=== PATIENT | male | born 1975 | race Hispanic/Latino ===

== ENCOUNTER 2020-03-25 18:06 | Emergency (ER) | payer OTHER ==
[2020-03-25] MEDS ORDERED: LIDOCAINE HCL 1% 20 ML VIAL ONE (18:34)
[2020-03-25] MEDS ORDERED: TETANUS/DIPHTHERIA TOXOID [ADULT] 0.5 ML VIAL IM ONE (18:35)
== END 2020-03-25 20:15 ==
LOC: EDH 18:06
DX: S01.81XA Laceration without foreign body of other part of head, initial encounter (principal); Y08.89XA Assault by other specified means, initial encounter; Y93.89 Activity, other specified; Y92.148 Other place in prison as the place of occurrence of the external cause; Y99.8 Other external cause status
CPT/HCPCS: 12013; 70450; 90471; 90714

== ENCOUNTER 2020-04-02 11:44 | Inpatient (IN) | payer OTHER ==
[~2020-04-02] VITALS: Ht 162.6 cm; Wt 50.0 kg
[2020-04-02 12:40] LABS: BASOPHILS % (AUTO) 0.6 % (0.0-5.0); EOSINOPHILS % (AUTO) 0.7 % (0.0-8.0); HEMATOCRIT 47.7 % (42-54); LYMPHOCYTES % (AUTO) 8.1 % (21.0-51.0); MEAN CORPUSCULAR HEMOGLOBIN 28.5 pg (27.0-33.0); MEAN CORPUSCULAR HGB CONC 32.5 g/dL (32.0-36.0); MEAN CORPUSCULAR VOLUME 87.8 fL (79-99); MONOCYTES % (AUTO) 4.6 % (3.0-13.0); NEUTROPHILS % (AUTO) 85.6 % (40.0-77.0); PLATELET COUNT (AUTO) 319 K/uL (130-400); RED BLOOD CELL COUNT(AUTO) 5.43 MIL/uL (4.50-6.20); RED CELL DISTRIBUTION WIDTH 13.2 % (11.0-15.5)
[2020-04-02 12:41] LABS: APPEARANCE,URINE Clear (CLEAR); BILIRUBIN,URINE Negative (NEGATIVE); COLOR,URINE Yellow (YELLOW); GLUCOSE, URINE (UA) Negative (NEGATIVE); KETONES,URINE Trace mg/dL (NEGATIVE); LEUKOCYTE ESTERASE ,URINE Negative (NEGATIVE); NITRATE,URINE Negative (NEGATIVE); OCCULT BLOOD,URINE Negative (NEGATIVE); PROTEIN,URINE Trace mg/dL (NEGATIVE)
[2020-04-02 12:54] LABS: CREATININE 0.9 mg/dL (0.5-1.5); POTASSIUM 5.5 mmol/L (3.5-5.1)
[2020-04-02 12:59] LABS: ALBUMIN 4.2 g/dL (3.5-5.0); BILIRUBIN,TOTAL 0.2 mg/dL (0.2-1.0); TOTAL PROTEIN, SERUM 8.1 g/dL (6.0-8.3)
[2020-04-02] MEDS ORDERED: LEVOFLOXACIN 500 MG/D5W 100 ML 100 ML ONE (14:02)
[2020-04-02] MEDS ORDERED: METRONIDAZOLE 500MG/100ML BAG 100 ML ONE (14:02)
[2020-04-02] MEDS: LACTATED RINGERS 1000ML 1,000 ML IV SCH ×2 (14:07→22:06)
[2020-04-02] MEDS: CEFTRIAXONE SODIUM 1 GM IV SCH (14:15)
[2020-04-02] MEDS: METRONIDAZOLE 500MG/100ML BAG 100 ML IV SCH ×2 (14:15→22:05)
[2020-04-02] MEDS ORDERED: ONDANSETRON HCL 4 MG/2 ML VIAL ONE (15:37)
[2020-04-02] MEDS ORDERED: KETOROLAC TROMETHAMINE 30MG/ML ONE (15:38)
[2020-04-02] MEDS ORDERED: CEFTRIAXONE SODIUM 1 GM ONE (18:44)
[2020-04-02] MEDS ORDERED: LACTATED RINGERS 1000ML 1,000 ML IV ONE (18:45)
[2020-04-02] MEDS: FAMOTIDINE/PF 20 MG/2 ML VIAL IV SCH (21:00)
[2020-04-02 21:30] VITALS: BP 105/68
[2020-04-02] MEDS ORDERED: KETOROLAC TROMETHAMINE 15MG/ML IV PRN (21:45)
[2020-04-02] MEDS ORDERED: KETOROLAC TROMETHAMINE 15MG/ML ONE (22:03)
[2020-04-02 23:35] VITALS: BP 119/66
[2020-04-03 03:39] VITALS: BP 110/68
[2020-04-03 05:04] LABS: BASOPHILS % (AUTO) 0.8 % (0.0-5.0); EOSINOPHILS % (AUTO) 4.4 % (0.0-8.0); HEMATOCRIT 42.7 % (42-54); LYMPHOCYTES % (AUTO) 21.1 % (21.0-51.0); MEAN CORPUSCULAR HEMOGLOBIN 28.5 pg (27.0-33.0); MEAN CORPUSCULAR HGB CONC 32.3 g/dL (32.0-36.0); MEAN CORPUSCULAR VOLUME 88.2 fL (79-99); MONOCYTES % (AUTO) 9.1 % (3.0-13.0); NEUTROPHILS % (AUTO) 64.3 % (40.0-77.0); PLATELET COUNT (AUTO) 304 K/uL (130-400); RED BLOOD CELL COUNT(AUTO) 4.84 MIL/uL (4.50-6.20); RED CELL DISTRIBUTION WIDTH 13.3 % (11.0-15.5); WHITE BLOOD COUNT (AUTO) 9.9 K/uL (4.8-10.8)
[2020-04-03 05:18] LABS: ALBUMIN 3.1 g/dL (3.5-5.0); BILIRUBIN,TOTAL 0.3 mg/dL (0.2-1.0); CREATININE 1.1 mg/dL (0.5-1.5); POTASSIUM 4.5 mmol/L (3.5-5.1); TOTAL PROTEIN, SERUM 6.3 g/dL (6.0-8.3)
[2020-04-03] MEDS: LACTATED RINGERS 1000ML 1,000 ML IV SCH ×2 (06:13→19:46)
[2020-04-03] MEDS: METRONIDAZOLE 500MG/100ML BAG 100 ML IV SCH ×3 (06:13→21:26)
[2020-04-03 07:25] VITALS: BP 105/66
[2020-04-03] MEDS: ENOXAPARIN SODIUM 30 MG/0.3 ML SQ SCH (09:31)
[2020-04-03] MEDS: FAMOTIDINE/PF 20 MG/2 ML VIAL IV SCH ×2 (09:31→19:46)
[2020-04-03 10:59] VITALS: BP 97/61
--- NOTE | 2020-04-03 11:13 | NUR ---
i informed dr roberts that dr sherman said from a surgical standpoint pt can be d/c home once tolerating diet; he said to plan and d/c the patient tomorrow if he tolerates diet; i informed pt of this and he stated understanding.
[2020-04-03] MEDS: CEFTRIAXONE SODIUM 1 GM IV SCH (14:21)
--- NOTE | 2020-04-03 14:26 | NUR ---
pt noam. initially clear liquid diet and now full liquid w/ no nausea, vomiting or abdominal pain; pt also had a bowel movement thus releiving his constipation.
[2020-04-03 15:43] VITALS: BP 107/70
--- NOTE | 2020-04-03 17:56 | NUR ---
PATIENT IN RESTROOM AT TIME OF CM VISIT. WILL TRY AGAIN IN AM. NOTED THAT SW REFERRAL IN COMPUTER FOR AM R/T POSS DRUG USE. CM TO FOLLOW NEEDED. Addendum: 04/03/20 at 1757 by LIZANDRO SANDERS RN CM Amended: Links added.
--- NOTE | 2020-04-03 19:45 | NUR ---
ROUNDS PATIENT AWAKE AND ALERT. VOICES ALL NEEDS. MEDICATED PER [facility] FOR COMPLAINTS OF ABD PAIN. HEAT PACKS APPLIED. TOLERATING PO DIET WELL. NO NAUSEA OR VOMITING NOTED. VITALS STABLE. AFEBRILE. LR INFUSING AT 100ML/HR. UP AD DEANNA. PATIENT HAD BM THIS PM. NO SIGNS OF DISTRESS NOTED. CALL LIGHT WITHIN REACH. WILL CONTINUE TO BE OBSERVED. Addendum: 04/03/20 at 2210 by ALEXANDRA CONNER RN RN Amended: Links added.
[2020-04-03 20:25] VITALS: BP 93/70
[2020-04-03 23:57] VITALS: BP 81/54
[2020-04-04 03:57] VITALS: BP 100/61
[2020-04-04] MEDS: METRONIDAZOLE 500MG/100ML BAG 100 ML IV SCH (05:37)
[2020-04-04 05:40] LABS: BASOPHILS % (AUTO) 0.8 % (0.0-5.0); EOSINOPHILS % (AUTO) 7.3 % (0.0-8.0); MEAN CORPUSCULAR HEMOGLOBIN 28.1 pg (27.0-33.0); MEAN CORPUSCULAR HGB CONC 31.5 g/dL (32.0-36.0); MONOCYTES % (AUTO) 8.5 % (3.0-13.0); NEUTROPHILS % (AUTO) 50.1 % (40.0-77.0); PLATELET COUNT (AUTO) 266 K/uL (130-400); RED BLOOD CELL COUNT(AUTO) 4.38 MIL/uL (4.50-6.20); RED CELL DISTRIBUTION WIDTH 13.5 % (11.0-15.5); WHITE BLOOD COUNT (AUTO) 7.4 K/uL (4.8-10.8)
[2020-04-04 06:06] LABS: ALBUMIN 2.7 g/dL (3.5-5.0); BILIRUBIN,TOTAL 0.3 mg/dL (0.2-1.0); POTASSIUM 4.9 mmol/L (3.5-5.1); TOTAL PROTEIN, SERUM 5.6 g/dL (6.0-8.3)
[2020-04-04] MEDS: LACTATED RINGERS 1000ML 1,000 ML IV SCH (06:07)
[2020-04-04] MEDS: ENOXAPARIN SODIUM 30 MG/0.3 ML SQ SCH (09:00)
[2020-04-04 09:13] VITALS: BP 96/64
[2020-04-04] MEDS: FAMOTIDINE/PF 20 MG/2 ML VIAL IV SCH (09:26)
--- NOTE | 2020-04-04 10:37 | NUR ---
FAMILY/ Clothes JUSTIN contacted by nurse, pt unable to reach family for ride home and clothes. Justin met with pt who states he lives with sister Sally Alonso and has not been able to reach brother in law since pt was admitted. Sw called [phone] as pt requested, phone not accepting calls. Pt knows no other # for family or friends, pt has no cell phone. Pt states he was in skilled nursing when he was brought he to [facility], was brought in jump suit and he has no clothes. JEANNINE Adams provided pt with bus route information and a t shirt and jeans. Justin called [place] [employer] [phone] and requested a wellness check for sister Sally Alonso's home at [address] PD to go to home and have family contact us. Waiting for response
--- NOTE | 2020-04-04 12:46 | NUR ---
DISCHARGE INFORMATION PROVIDED TO PATIENT ALONG WITH LIST OF PCP. PER PATIENT VERBALIZED UNDERSTANDING
--- NOTE | 2020-04-04 14:29 | NUR ---
notified frank montero ,spoke with grupo on patient being discharged home . per grupo ok and noted
== END 2020-04-04 14:00 | disposition home or self-care (01) | DRG 390 ==
LOC: EDH 11:44 → EEVIPCON 11:44 → EDHIP 14:07 → 3CH 19:34
PROVIDERS: ADMIT Family Medicine; ATTEND Family Medicine
PROC: 0D9670Z Drainage of Stomach with Drainage Device, Via Natural or Artificial Opening (ICD-10-PCS; principal; 2020-04-02)
DX: K56.609 Unspecified intestinal obstruction, unspecified as to partial versus complete obstruction (principal); F17.200 Nicotine dependence, unspecified, uncomplicated; D72.829 Elevated white blood cell count, unspecified
CPT/HCPCS: 36415; 74018; 74176; 80053; 81003; 85025; G0378; J0696; J1650; J1885; J1956; J2405; J3490; J7120

== ENCOUNTER 2023-07-19 11:28 | Emergency (ER) | payer OTHER ==
[~2023-07-19] VITALS: Ht 162.6 cm; Wt 54.4 kg
[2023-07-19] MEDS ORDERED: 0.9%NACL 1000ML 1,000 ML IV ONE (12:00)
[2023-07-19 12:59] LABS: BASOPHILS # (AUTO) 0.09 K/uL (0.00-0.20); BASOPHILS % (AUTO) 1.2 % (0.0-5.0); EOSINOPHILS # (AUTO) 0.31 K/uL (0.00-0.70); EOSINOPHILS % (AUTO) 4.1 % (0.0-8.0); HEMATOCRIT 38.6 % (42-54); IMMATURE GRANULOCYTE ABSOLUTE 0.02 K/uL (0-1); LYMPHOCYTES # (AUTO) 1.7 K/uL (1.0-4.8); LYMPHOCYTES % (AUTO) 22.3 % (21.0-51.0); MEAN CORPUSCULAR HEMOGLOBIN 28.3 pg (27.0-33.0); MEAN CORPUSCULAR HGB CONC 32.6 g/dL (32.0-36.0); MEAN CORPUSCULAR VOLUME 86.7 fL (79-99); MONOCYTES # (AUTO) 0.7 K/uL (0.1-1.0); MONOCYTES % (AUTO) 9.7 % (3.0-13.0); NEUTROPHILS # (AUTO) 4.7 K/uL (1.8-7.7); NEUTROPHILS % (AUTO) 62.4 % (40.0-77.0); PLATELET COUNT (AUTO) 271 K/uL (130-400); RED BLOOD CELL COUNT(AUTO) 4.45 MIL/uL (4.50-6.20); RED CELL DISTRIBUTION WIDTH 13.5 % (11.0-15.5); WHITE BLOOD COUNT (AUTO) 7.5 K/uL (4.8-10.8)
[2023-07-19 13:17] LABS: ALBUMIN 3.7 g/dL (3.5-5.0); BILIRUBIN,TOTAL 0.6 mg/dL (0.2-1.0); CREATININE 0.9 mg/dL (0.5-1.5); POTASSIUM 3.3 mmol/L (3.5-5.1); TOTAL PROTEIN, SERUM 7.2 g/dL (6.0-8.3)
[2023-07-19 13:30] VITALS: BP 133/78; PULSE 74; RESP 18; O2SAT 98
[2023-07-19] MEDS ORDERED: POTASSIUM BICARB/CIT AC 25 MEQ TABLET.EFF PO ONE (14:00)
== END 2023-07-19 14:31 | disposition left against medical advice (07) ==
LOC: EDH 11:28
DX: T65.91XA Toxic effect of unspecified substance, accidental (unintentional), initial encounter (principal); F17.200 Nicotine dependence, unspecified, uncomplicated; Z90.49 Acquired absence of other specified parts of digestive tract; Y92.89 Other specified places as the place of occurrence of the external cause
CPT/HCPCS: 99283; 96360; 96361; 80053; 85025; 36415; J7030